=== PATIENT | female | born 2000 | race Two or more races ===

== ENCOUNTER 2021-03-11 21:07 | Emergency (ER) | payer OTHER ==
[~2021-03-11] VITALS: Ht 157.5 cm; Wt 54.4 kg
[2021-03-11] MEDS ORDERED: PANADOL (21:36)
[2021-03-12] MEDS ORDERED: ZITHROMAX500 MG PO (01:19)
[2021-03-12] MEDS ORDERED: ZYNCOF 20-400120 ML PO ×2 (01:22→01:23)
== END 2021-03-12 01:43 | disposition home or self-care (01) ==
LOC: ER 21:07
DX: U07.1 COVID-19 (principal); A49.3 Mycoplasma infection, unspecified site

== ENCOUNTER 2021-05-01 05:10 | Emergency (ER) | payer OTHER ==
[~2021-05-01] VITALS: Ht 157.5 cm; Wt 54.4 kg
[~2021-05-01 05:10] MED LIST: PANADOL; ZITHROMAX500 MG PO; ZYNCOF 20-400120 ML PO
== END 2021-05-01 07:43 | disposition home or self-care (01) ==
LOC: ER 05:10
DX: R51.9 Headache, unspecified (principal)

== ENCOUNTER 2022-01-02 14:27 | Emergency (ER) | payer OTHER ==
[~2022-01-02] VITALS: Ht 157.5 cm; Wt 59.0 kg
[2022-01-02] MEDS ORDERED: TUSNEL LIQUID178 ML PO (16:47)
[2022-01-02] MEDS ORDERED: ZYRTEC10 M3 PO (16:47)
[2022-01-02] MEDS ORDERED: ZITHROMAX500 MG PO (16:47)
== END 2022-01-02 16:59 | disposition home or self-care (01) ==
LOC: ER 14:27
DX: B34.9 Viral infection, unspecified (principal)

== ENCOUNTER 2022-08-05 19:39 | Emergency (ER) | payer OTHER ==
[~2022-08-05] VITALS: Ht 157.5 cm; Wt 59.0 kg
[~2022-08-05 19:39] MED LIST changes: +TUSNEL LIQUID178 ML PO; +ZYRTEC10 M3 PO
== END 2022-08-05 22:36 | disposition home or self-care (01) ==
LOC: ER 19:39
DX: J32.9 Chronic sinusitis, unspecified (principal)

== ENCOUNTER 2023-03-16 17:26 | Emergency (ER) | payer OTHER ==
[~2023-03-16] VITALS: Ht 157.5 cm; Wt 53.5 kg
== END 2023-03-16 19:55 | disposition home or self-care (01) ==
LOC: ER 17:27
DX: J03.90 Acute tonsillitis, unspecified (principal)

== ENCOUNTER → 2023-05-22 | Emergency (ER) | payer OTHER ==
[~2023-05-22] VITALS: Ht 157.5 cm; Wt 57.2 kg
== END | disposition left against medical advice (07) ==
LOC: ER 21:00
DX: Z53.21 Procedure and treatment not carried out due to patient leaving prior to being seen by health care provider (principal)

== ENCOUNTER 2024-02-06 06:20 | Outpatient (CLI) | payer OTHER ==
[2024-02-06 07:10] LABS: URINE APPEARANCE Clear; URINE BILIRRUBIN Negative (NEGATIVE); URINE BLOOD Negative; URINE COLOR Yellow; URINE GLUCOSE Negative (NEGATIVE); URINE KETONE Negative (NEGATIVE); URINE LEUKOCYTE Negative; URINE NITRATE Negative; URINE PROTEIN Negative (NEGATIVE); URINE UROBILINOGEN 0.2 E.U./dl
[2024-02-06 07:14] LABS: URINE BACTERIA 515.2 uL (0.0-1933); URINE EPITHELIAL CELLS 33.3 uL (0.0-38.8); URINE RBC 2.1 uL (0.0-20.8); URINE WBC 18.2 uL (0.0-23.2)
[2024-02-06 07:15] LABS: HEMOGLOBIN 13.4 g/dL (12.0-15.00); MEAN CELL VOLUME 89.5 fL (80.00-100.00); MEAN CORPUSCULAR HEMOGLOBIN 31.6 pg (27.00-32.0); MEAN CORPUSCULAR HGB CONC 35.3 g/dl (32.0-36.0); PLATELET COUNT 180 K/uL (150-450); RED BLOOD COUNT 4.25 M/uL (4.00-6.00); RED CELL DISTRIBUTION WIDTH 13.2 % (11.5-14.5)
[2024-02-06 07:47] LABS: ALBUMIN 4.1 gm/dL (3.4-5.0); BILIRUBIN TOTAL 0.56 mg/dL (0.3-1.2); CALCIUM 9.3 mg/dL (8.5-10.1); CHOL HDL RATIO 2.8 (0-5.0); CREATININE SERUM 0.78 mg/dL (0.55-1.02); GFR 90.73; GLOBULINA 3.2 G/DL (2.4-3.5); POTASSIUM 3.84 mEq/L (3.5-5.1); TOTAL PROTEIN 7.3 gm/dL (6.4-8.2)
[2024-02-07 10:06] LABS: LEUTEINIZING HORMONE 80.8 mIU/mL (.)
== END 2024-02-06 06:28 | disposition home or self-care (01) ==
LOC: LAB 06:20
PROVIDERS: ATTEND Internal Medicine
DX: I10 Essential (primary) hypertension (principal); Z01.810 Encounter for preprocedural cardiovascular examination; E03.9 Hypothyroidism, unspecified; E78.9 Disorder of lipoprotein metabolism, unspecified; E55.9 Vitamin D deficiency, unspecified; E11.51 Type 2 diabetes mellitus with diabetic peripheral angiopathy without gangrene

== ENCOUNTER 2024-02-07 08:57 | Outpatient (CLI) | payer OTHER ==
[2024-02-07 11:11] LABS: ob NEGATIVE (NEGATIVE)
== END 2024-02-07 09:05 | disposition home or self-care (01) ==
LOC: LAB 08:57
PROVIDERS: ATTEND Internal Medicine
DX: N91.1 Secondary amenorrhea (principal); D64.9 Anemia, unspecified; E11.9 Type 2 diabetes mellitus without complications; N39.0 Urinary tract infection, site not specified; E78.00 Pure hypercholesterolemia, unspecified; E03.9 Hypothyroidism, unspecified; E55.9 Vitamin D deficiency, unspecified; Z12.11 Encounter for screening for malignant neoplasm of colon; K76.9 Liver disease, unspecified; B19.9 Unspecified viral hepatitis without hepatic coma; R80.9 Proteinuria, unspecified